=== PATIENT | female | born 1950 | race Caucasian/White ===

== ENCOUNTER 2019-05-15 12:14 | Emergency (ER) | payer MEDICARE, MEDICAID ==
[~2019-05-15] VITALS: Ht 170.2 cm; Wt 79.0 kg
--- NOTE | 2019-05-15 12:35 | NUR ---
ASSUMED CARE OF PT AT THIS TIME FROM LOBBY VIA WHEELCHAIR. DR. ADEN AT BEDSIDE. PT RA SAT PER TRIAGE 87%, PT WAS PLACED ON 2L NC O2, PULSE OX 97%. O2 REMOVED BY DR. ADEN DURING EVALUATION PT MAINTAINED PULSE OX 91-93% RA. 69 Y/O F PRESENTS STATING "COPD FLARE, SHORT OF BREATH FOR FEW WEEKS NOW, CAN'T SEE MY DOCTOR UNTIL September, NEED NEW INHALER." DENIES CP, PAIN, N/V/D, FEVER, COUGH, CHILLS, KU. CONT PULSE OX, BP, CARDIAC MONITORS APPLIED. VSS. SR ON MONITOR. RESP REGULAR, EVEN, UNLABORED, MILD WORK OF BREATHING NOTED, NO ACCESSORY MUSCLE USE. PT SITTING STRAIGHT UP IN 90 DEGREE STANCE PER PT FOR EASE OF BRETHING. ABLE TO SPEAK IN FULL SENTENCES. A&OX4. CALL LIGHT IN REACH. FALL PRECAUTIONS IN PLACE. RT PAGED FOR BREATHING TREATMENT.
[2019-05-15] MEDS ORDERED: ALBUTEROL/IPRATROPIUM 2.5MG/0.5MG, 3 ML ONE (12:39)
--- NOTE | 2019-05-15 12:46 | NUR ---
RT AT BEDSIDE FOR BREATHING TREATMENT, LAB AT BEDSIDE
[2019-05-15] MEDS: ALBUTEROL/IPRATROPIUM 2.5MG/0.5MG, 3 ML NPPB SCH (12:47)
[2019-05-15] MEDS ORDERED: BUDE90AE INH (12:59)
[2019-05-15] MEDS ORDERED: ASPI-496 PO (12:59)
[2019-05-15] MEDS ORDERED: LORA10TA62 PO (12:59)
[2019-05-15] MEDS ORDERED: LOVA20TA2 PO (12:59)
[2019-05-15] MEDS ORDERED: CARV3.1212 PO (12:59)
[2019-05-15 13:00] LABS: EOSINOPHILS % (AUTO) 1 % (1-7); MD NO; MEAN CORPUSCULAR HEMOGLOBIN 33.1 pg (27.0-34.8); MEAN CORPUSCULAR HGB CONC 33.6 g/dL (32.4-35.8); MEAN PLATELET VOLUME 7.2 fL (7.4-10.4)
[2019-05-15 13:06] LABS: BASOPHILS % (AUTO) 1 % (0-1); EOSINOPHILS # (AUTO) 0.05 x10^3/uL (0-0.4); LYMPHOCYTES # (AUTO) 2.17 x10^3/uL (1-3.4); LYMPHOCYTES % (AUTO) 29 % (22-44); MEAN CORPUSCULAR VOLUME 98.6 fL (80-100); MONOCYTES # (AUTO) 0.45 x10^3/uL (0.2-0.8); MONOCYTES % (AUTO) 6 % (2-9); NEUTROPHILS # (AUTO) 4.86 x10^3/uL (1.8-6.8); NEUTROPHILS % (AUTO) 64 % (42-75); PLATELET COUNT 291 x10^3/uL (130-400); RED BLOOD COUNT 5.05 x10^6/uL (3.82-5.3)
--- NOTE | 2019-05-15 13:07 | NUR ---
PT MEDICATED NOTED IN EMAR PER DR. ADEN. RESTING IN POSITION OF COMFORT. PULSE OX 92% RA. DENIES ANY PAIN. SR ON MONITOR. PT REPORTS "FEEL THE NEBULIZER KICKING IN, SEEMS EASIER TO BREATH." IMPROVED AIR MOVEMENT WITH AUSCULATION S/P BREATHING TX. CALL LIGHT IN REACH. VSS.
[2019-05-15 13:08] LABS: ALBUMIN 3.6 g/dL (3.4-5.0); ANION GAP 6 mmol/L (5-15); CALCIUM 9.3 mg/dL (8.5-10.1); CHLORIDE 105 mmol/L (98-107); CREATININE 0.74 mg/dL (0.55-1.02)
--- NOTE | 2019-05-15 13:27 | NUR ---
PT UP FOR RECHECK
--- NOTE | 2019-05-15 14:25 | NUR ---
DR. ADEN AT BEDSIDE FOR RECHECK, AWAITING CHART AND DISCHARGE PAPERS FROM [facility]. PT REPORTS "FEELING BETTER, EASIER TO BREATH." VSS. CALL LIGHT IN REACH. FALL PRECUATIONS IN PLACE.
[2019-05-15 14:35] VITALS: BP 147/81
--- NOTE | 2019-05-15 14:36 | NUR ---
KAMILLE FISH RN AT BEDSIDE TO ASSIST WITH PT DISCHARGE.
== END 2019-05-15 14:38 | disposition home or self-care (01) ==
LOC: ED 14:20
DX: J44.1 Chronic obstructive pulmonary disease with (acute) exacerbation (principal); Z76.0 Encounter for issue of repeat prescription; F17.200 Nicotine dependence, unspecified, uncomplicated
CPT/HCPCS: 36415; 71046; 80048; 82040; 83880; 85025; 93005; 94640; 99285; J7512; 99283